=== PATIENT | female | born 2000 | race Caucasian/White ===

== ENCOUNTER → 2023-05-21 10:39 | Outpatient (CLI) | payer OTHER, SELFPAY ==
[2023-05-21 16:01] LABS: Urine N gonorrhoeae NOT DETECTED
[2023-05-21 16:04] LABS: Urine Chlamydia NOT DETECTED
== END ==
PROVIDERS: Visit Provider Obstetrics & Gynecology
DX: Z34.01 Encounter for supervision of normal first pregnancy, first trimester (principal); Z3A.11 11 weeks gestation of pregnancy
CPT/HCPCS: 87491; 87591

== ENCOUNTER → 2023-05-21 11:01 | Outpatient (CLI) | payer OTHER, SELFPAY ==
[2023-05-21 11:58] LABS: Add Manual Diff / Slide Review NO; Basophils Absolute Auto 0 /uL (0-100); Basophils Percent Auto 0.7 % (0-2); Eosinophils Absolute Auto 100 /uL (0-450); Eosinophils Percent Auto 0.8 % (2-4); Hematocrit 37.9 % (36-46); Hemoglobin 13.3 g/dL (12.0-16.0); Lymphocytes Absolute Auto 2100 /uL (1100-4500); Mean Corpuscular HGB Conc 35.1 % (30-36); Mean Corpuscular Hemoglobin 32.2 PG (26-34); Mean Corpuscular Volume 91.8 fL (80-100); Monocytes Absolute Auto 600 /uL (0-900); Monocytes Percent Auto 8.4 % (3-14); Neutrophils Absolute Auto 4500 /uL (1500-7000); Neutrophils Percent Auto 61.1 % (50-75); Platelet Count 289 X10^3/uL (150-400); Red Blood Cell Count 4.13 X10^6/uL (4.0-5.2); Red Cell Distribution Width 12.9 % (11.6-14.8); White Blood Cell Count 7.4 X10^3/uL (4.5-11.0)
[2023-05-22 11:36] LABS: Varicella IgG Antibody 210 index (Immune >165)
[2023-05-23 04:39] LABS: RPR Screen Non Reactive (Non Reactive)
[2023-05-24 16:25] LABS: Hepatitis B Surface Antigen NEGATIVE s/c (NEGATIVE)
[2023-05-24 17:04] LABS: Rubella Antibody IgG 66.1 IU/mL (>15)
[2023-05-24 17:23] LABS: HIV 1 & 2 Ab/Ag 4th Gen Combo NEGATIVE (NEGATIVE); Hep C Virus Ab w/Reflex Quant NEGATIVE s/c (NEGATIVE)
== END ==
PROVIDERS: Referring Provider Family Medicine; Visit Provider Family Medicine
DX: Z34.01 Encounter for supervision of normal first pregnancy, first trimester (principal); Z3A.11 11 weeks gestation of pregnancy
CPT/HCPCS: 36415; 80055; 86787; 86803; 86850; 86900; 86901; 87389; 87491; 87591

== ENCOUNTER → 2023-06-18 09:32 | Outpatient (CLI) | payer OTHER, SELFPAY ==
[2023-06-21 16:36] LABS: AFP, Serum 24.2 ng/mL (.); Estriol, Free 0.42 ng/mL (.); Inhibin A, Dimeric 137.06 pg/mL (.); Inhibin A, MoM 0.95 (.); Maternal Ethnicity Caucasian (.); Maternal Weight 183 lbs (.); Number of Fetuses No (.); OSBR Risk 1 IN 10000 (.); Results Report (.); Test Results *Screen Negative* (.); hCG, Serum 79153 mIU/mL (.)
== END ==
PROVIDERS: PCP Family Medicine; Referring Provider Family Medicine; Visit Provider Family Medicine
DX: Z34.00 Encounter for supervision of normal first pregnancy, unspecified trimester (principal); Z3A.15 15 weeks gestation of pregnancy
CPT/HCPCS: 36415; 82105; 82677; 84702; 86336

== ENCOUNTER 2023-08-27 09:48 | Outpatient (CLI) | payer OTHER, SELFPAY | END 2023-08-27 11:00 | disposition home or self-care (01) | LOC: LABOR 09:52 → OB 08-30 11:56 | PROVIDERS: PCP Family Medicine; Referring Provider Family Medicine; Visit Provider Family Medicine | DX: Z36.9 Encounter for antenatal screening, unspecified (principal) | CPT/HCPCS: 59025; G0378; G0379 ==

== ENCOUNTER → 2023-09-03 08:19 | Outpatient (CLI) | payer OTHER, SELFPAY ==
[2023-09-03 10:05] LABS: GTT (PREG) 1 Hour PP 50gm Dose 100 mg/dL (76-139)
== END ==
PROVIDERS: Family Medicine; PCP Family Medicine; Referring Provider Family Medicine; Visit Provider Family Medicine
DX: Z36.89 Encounter for other specified antenatal screening (principal); Z34.00 Encounter for supervision of normal first pregnancy, unspecified trimester
CPT/HCPCS: 82950; 86850

== ENCOUNTER → 2023-09-27 10:18 | Outpatient (CLI) | payer OTHER, SELFPAY ==
[2023-09-27 11:07] LABS: Appearance Urine UA SL CLOUDY; Bilirubin Urine UA NEGATIVE (NEGATIVE); Color Urine UA YELLOW; Glucose Urine UA NEGATIVE (Negative); Ketones Urine UA NEGATIVE (NEGATIVE); Leukocyte Esterase Urine UA 1+ (NEGATIVE); Nitrite Urine UA NEGATIVE (Negative); Occult Blood Urine UA NEGATIVE (Negative); Protein Urine UA NEGATIVE (Negative); Specific Gravity Urine UA <=1.005 (1.000-1.035); Urobilinogen Urine UA 0.2 E.U./dL (0.2)
[2023-09-27 12:03] LABS: Bacteria Urine Moderate (10-30); Culture Indicated Urine Specimen Cultured; RBC Urine 0-1/HPF (0-5/HPF); Squamous Epithelial Cell Urine 5-10 /HPF (0-5/HPF); WBC Urine 1-5/HPF (0-5/HPF)
== END ==
LOC: LAB 10:19
PROVIDERS: PCP Family Medicine; Referring Provider Family Medicine; Visit Provider Family Medicine
DX: R30.0 Dysuria (principal)
CPT/HCPCS: 81003; 81015; 87086

== ENCOUNTER → 2023-10-08 09:55 | Outpatient (CLI) | payer OTHER, SELFPAY ==
[2023-10-08 10:31] LABS: Add Manual Diff / Slide Review NO; Basophils Absolute Auto 100 /uL (0-100); Basophils Percent Auto 0.5 % (0-2); Eosinophils Absolute Auto 100 /uL (0-450); Eosinophils Percent Auto 1.1 % (2-4); Lymphocytes Absolute Auto 2400 /uL (1100-4500); Lymphocytes Percent Auto 21.8 % (25-40); Mean Corpuscular HGB Conc 35.5 % (30-36); Mean Corpuscular Hemoglobin 32.8 PG (26-34); Mean Corpuscular Volume 92.3 fL (80-100); Monocytes Absolute Auto 1000 /uL (0-900); Monocytes Percent Auto 9.3 % (3-14); Neutrophils Absolute Auto 7300 /uL (1500-7000); Neutrophils Percent Auto 67.3 % (50-75); Platelet Count 288 X10^3/uL (150-400); Red Blood Cell Count 3.36 X10^6/uL (4.0-5.2); Red Cell Distribution Width 12.6 % (11.6-14.8); White Blood Cell Count 10.9 X10^3/uL (4.5-11.0)
== END ==
PROVIDERS: PCP Family Medicine; Referring Provider Family Medicine; Visit Provider Family Medicine
DX: Z34.00 Encounter for supervision of normal first pregnancy, unspecified trimester (principal)
CPT/HCPCS: 36415; 85025

== ENCOUNTER → 2023-11-12 10:16 | Outpatient (CLI) | payer OTHER, SELFPAY ==
[2023-11-13 08:12] LABS: Strep Grp B PCR NEG for Grp B Strep
== END ==
PROVIDERS: PCP Family Medicine; Visit Provider Family Medicine
DX: Z34.00 Encounter for supervision of normal first pregnancy, unspecified trimester (principal)
CPT/HCPCS: 87653

== ENCOUNTER 2023-12-06 19:18 | Inpatient (IN) | payer OTHER, SELFPAY ==
[2023-12-06 21:53] LABS: Add Manual Diff / Slide Review NO; Basophils Absolute Auto 100 /uL (0-100); Basophils Percent Auto 0.6 % (0-2); Eosinophils Absolute Auto 100 /uL (0-450); Eosinophils Percent Auto 0.7 % (2-4); Hematocrit 36.6 % (36-46); Hemoglobin 12.5 g/dL (12.0-16.0); Lymphocytes Absolute Auto 2900 /uL (1100-4500); Lymphocytes Percent Auto 21.8 % (25-40); Mean Corpuscular HGB Conc 34.1 % (30-36); Mean Corpuscular Hemoglobin 31.5 PG (26-34); Mean Corpuscular Volume 92.3 fL (80-100); Monocytes Absolute Auto 1100 /uL (0-900); Neutrophils Absolute Auto 9200 /uL (1500-7000); Neutrophils Percent Auto 68.9 % (50-75); Platelet Count 307 X10^3/uL (150-400); Red Blood Cell Count 3.96 X10^6/uL (4.0-5.2); Red Cell Distribution Width 13.6 % (11.6-14.8); White Blood Cell Count 13.3 X10^3/uL (4.5-11.0)
--- NOTE | 2023-12-06 22:41 | P.HPOB_ITS ---
OB HPI Date/Time Date of admission: 12/06/23 History of Present Condition Chief complaint: labor NEEL Calculator 2 Estimated Delivery Date Method Current WG Current Estimate 12/08/23 LMP (Certain) 39w 5d Other Estimates 12/15/23 Ultrasound #1 38w 5d 12/12/23 Ultrasound #2 39w 1d 12/07/23 Conception 39w 6d Estimated Gestational Age (weeks): 39 : 1 Para: 0 Narrative: 23-year-old at GA 39+5 weeks presenting for leakage of fluid with contractions. Reports onset of clear fluid leaking since sometime last night. Initially thought she may have leaked urine. Persistent contractions today every 3-5min for two hours prior to presentation. Endorses normal movement. Denies vaginal bleeding. complicated by anemia (on oral iron supplement), Rh negative blood type, remote h/o possible seizure (not on anti-epileptic). care: good care Dating criteria OB: LMP confirmed by 1st trimester US Ultrasounds: normal 1st trimester US and normal mid trimester US Preadmission Labs Last OB Lab Results: 2 Blood Type A Negative 12/06/23 21:35 Antibody Screen Negative 12/06/23 21:35 Hematocrit 36.6 % (36-46) 12/06/23 21:35 Hemoglobin 12.5 g/dL (12.0-16.0) 12/06/23 21:35 Hepatitis B Surface Antigen Negative s/c (NEGATIVE) 05/21/23 11 :21 Hepatitis C Antibody Negative s/c (NEGATIVE) 05/21/23 11:21 Rubella Antibody 66.1 IU/mL (>15) 05/21/23 11:21 Varicella-Zoster IgG Antibody 210 index (Immune >165) 05/21/23 11:21 Glucose 1 Hour 100 mg/dL (76-139) 09/03/23 08:21 Group B Streptococcus (PCR) Neg for grp b strep 11/12/23 10:16 -: Chlamydia screen: negative and Gonorrhea screen: negative Genetic Screens: Quad screen: Normal Evaluation Evaluation Baseline heart rate: 150 Variability: Moderate (11-25) monitor accelerations: Present Monitor Decelerations: Absent Contraction Frequency (minutes): 4 Uterine Contraction Intensity: Mild Category of Tracing: Reactive Status: Category l Dilation (cm): 1 Effacement (%): 60 station: -4 Non-invasive Membranes Rupture Test: positive Comments: Exam per L&D RN [facility] Medical History (Updated 10/08/23 @ 22:46 by Ángel Contreras MD) Migraine with aura Migraine without aura Seizure (~09/2022) Surgical History (Updated 05/06/23 @ 09:42 by Tanisha Braswell RN) No pertinent past surgical history Social History marital status: unmarried,single number of children: 0 household members: other lives independently: Yes caregiver/support person: No housing: other ([employer]) pets and animals: No education level: high school 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) special audie needs: No travel history: recent ([place], [place], [place], domestic) seatbelt use: always helmet use: Yes water heater temp set < 120 deg: Yes working smoke detector in home: Yes fire extinguisher in home: Yes carbon monox detector in home: Yes firearms in home: No do you feel safe at home: Yes Smoking Status: Former smoker (Quit when she learned she was ) Tobacco: How many years used: 6 second hand exposure: No alcohol intake: former (1-3w/ not ) substance use type: does not use during the past year weight has: other (~25 lb fluctuation) well-balanced diet: daily or most days daily servings fruits/ve-4 caffeine: No Type(s) of exercise: walking Meds Home Medications and Allergies Home Medications Medication Instructions Recorded Confirmed Type cholecalciferol (vitamin D3) 50 50 mcg PO DAILY 05/06/23 12/03/23 History mcg (2,000 unit) capsule heavenly (Zingiber officinalis) 500 1 g PO TID PRN 05/06/23 12/03/23 History mg capsule mecobalamin (vitamin B12) 1,000 1,000 mcg PO DAILY 05/06/23 12/03/23 History mcg chewable tablet vitamin-ferrous sulfate tab PO 05/06/23 12/03/23 History 27 mg iron-folic acid 0.8 mg tablet pyridoxine (vitamin B6) 50 mg 25 mg PO DAILY 05/06/23 12/03/23 History tablet ferrous sulfate 325 mg (65 mg 325 mg PO Q OTHER DAY #30 tabs 10/08/23 12/03/23 Rx iron) tablet Allergies Allergy/AdvReac Type Severity Reaction Status Date / Time No Known Drug Allergies Allergy Verified 12/03/23 11:20 Review of Systems Review of Systems ROS: Yes All systems reviewed with the patient and are negative except as otherwise documented OB Exam Narrative Exam Narrative: General: Well-nourished, no distress HEENT: NC/AT, EOMI, moist mucous membranes CV: RRR, normal S1 S2, no m/g/r Resp: CTAB Abd: Gravid, soft, NTND, +BS Ext: Full ROM, no edema Skin: No rash or lesions Neuro: A&O x3, normal tone, no focal deficits Objective Labs 12/06/23 21:35 Labs: Laboratory Results - last 24 hr 12/06/23 21:35 WBC 13.3 H RBC 3.96 L Hgb 12.5 Hct 36.6 MCV 92.3 MCH 31.5 MCHC 34.1 RDW 13.6 Plt Count 307 Neut % (Auto) 68.9 Lymph % (Auto) 21.8 L Stanton % (Auto) 8.0 Eos % (Auto) 0.7 L Baso % (Auto) 0.6 Neut # (Auto) 9200 H Lymph # (Auto) 2900 Stanton # (Auto) 1100 H Eos # (Auto) 100 Baso # (Auto) 100 Blood Type A Negative Antibody Screen Negative Assessment and Plan Assessment and Plan Assessment and Plan narrative: 23-year-old at [place] 39+5 weeks presenting for leakage of fluid w/contractions. Amnisure positive, pt in labor. Possible prolonged ROM given reported leakage of fluid since last night, pt afebrile and FWB reassuring w/cat 1 strip on presentaiton. -admit to L&D -cervical ripening with p.o. misoprostol q4h, transition to pitocin when Carmona favorable -GBS negative, ppx not indicated -pain control prn if desired by patient -PPH risk low -VTE risk low, SCDs with epidural -anticipate vaginal delivery Time Spent with Patient Total time spent with greater than 50% in coordination of care (as documented) at patient's floor/unit and/or counseling patient:: 15-24 minutes
[2023-12-06] MEDS: fentaNYL 100 MCG/2 ML INJ 50 MCG IV (22:44)
[2023-12-06 22:50] VITALS: BP 123/83
[2023-12-06] MEDS: LACTATED RINGERS 1,000 ML 100 ML IV (23:24)
[2023-12-07] MEDS: fentaNYL 100 MCG/2 ML INJ 50 MCG IV ×5 (01:01→08:16)
[2023-12-07] MEDS: miSOPROStoL 25 MCG TABLET PO ×2 (05:26)
[2023-12-07] MEDS: OXYTOCIN PREMIX 30 UNIT/500 ML PLAST..BAG IV (13:30)
[2023-12-07] MEDS: LACTATED RINGERS 1,000 ML 100 ML IV (13:31)
--- NOTE | 2023-12-07 13:49 | P.PCN_ITS ---
[facility]ional [facility] Pre-procedure PMH/ROS narrative: at GA 39+5 with leakage of fluid and contractions. complicated by anemia (on oral iron supplement), remote h/o possible seizure (not on anti- epileptic). PSH/Anesthesia history narrative: No prior surgery and no know FHx of anesthetic complications. ASA Class: II Labs: Hct 36.6 % (36-46) 12/06/23 21:35 Plt Count 307 X10^3/uL (150-400) 12/06/23 21:35 Medications: Current Medications Generic Name Dose Route Start Last Admin Trade Name Freq PRN Reason Stop Dose Admin Calcium Carbonate 1,000 mg 12/06/23 21:08 Calcium Carbonate 500 Mg Tab PO Q4HR PRN Dyspepsia Carboprost Tromethamine 250 mcg 12/06/23 21:08 Carboprost 250 Mcg/Ml Ampul IM Q90M PRN Bleeding Diphenhydramine HCl 25 mg 12/07/23 10:48 Diphenhydramine 50 Mg/Ml Vial IV Q10M PRN Pruritis Fentanyl 50 mcg 12/06/23 21:08 12/07/23 08:16 Fentanyl 100 Mcg/2 Ml Inj IV 50 mcg Q1H PRN Administration Pain, Moderate (4-6) Lactated Ringer's 1,000 mls @ 100 mls/hr 12/06/23 21:15 12/07/23 13:31 Lactated Ringers IV 100 mls/hr CONT ELSIE Administration Oxytocin/Lactated Ringer's 30 unit in 500 mls @ 200 mls/hr 12/06/23 21:08 Oxytocin Premix IV CONT PRN Bleeding Protocol Tranexamic Acid 1,000 mg/ 100 mls @ 200 mls/hr 12/06/23 21:08 Sodium Chloride IV NOW PRN Bleeding FENT 2MCG/ML BUPIV 0.125% EPI 200 mcg in 100 mls @ 6 mls/hr 12/07/23 11:00 Fentanyl/Bupiv/Ns 2mcg/Ml - 0.125% EPIDURAL CONT ELSIE Oxytocin/Lactated Ringer's 30 unit in 500 mls @ 1 mls/hr 12/07/23 13:30 12/07/23 13:30 Oxytocin Premix IV 1 milliunit/min TITRATE ELSIE 1 mls/hr Administration Protocol 1 MILLIUNIT/MIN Lidocaine HCl 20 ml 12/06/23 21:08 Lidocaine 1% 20 Ml INJ INTRA-OP PRN Post Delivery Methylergonovine Maleate 0.2 mg 12/06/23 21:08 Methylergonovine 0.2 Mg Tablet PO Q6HR PRN Heavy Bleeding Methylergonovine Maleate 0.2 mg 12/06/23 21:08 Methylergonovine 0.2 Mg/Ml Vial IM NOW PRN Bleeding Misoprostol 800 mcg 12/06/23 21:08 Misoprostol 200 Mcg Tablet GA NOW PRN Bleeding Misoprostol 400 mcg 12/06/23 21:08 Misoprostol 200 Mcg Tablet SL NOW PRN Bleeding Misoprostol 25 mcg 12/06/23 21:15 12/07/23 05:26 Misoprostol 25 Mcg Tablet PO 25 mcg Q4H ELSIE Administration Nalbuphine HCl 2.5 mg 12/07/23 10:48 Nalbuphine 20 Mg/Ml Ampul IV Q10M PRN Pruritis Naloxone HCl 0.2 mg 12/06/23 21:08 Naloxone 0.4 Mg/Ml Vial IV Q2MIN PRN Opiate Reversal Ondansetron HCl 4 mg 12/06/23 21:08 Ondansetron 4 Mg/2 Ml Inj IV Q4HR PRN Nausea And Vomiting Oxytocin 10 unit 12/06/23 21:08 Oxytocin 10 Unit/Ml Vial IM NOW PRN Bleeding Allergies: Allergies Allergy/AdvReac Type Severity Reaction Status Date / Time No Known Drug Allergies Allergy Verified 12/03/23 11:20 Procedure Insertion date: 12/07/23 Insertion time: 11:21 Prep/Local: betadine x3 and 1% lidocaine Interspace: L3-4 Patient position: sitting Needle: 18 gauge [employer]tead (CSE: 27g Pencan through Hustead, clear CSF, 1mL 0.25% MPF bupiv) Loss of resistance with: saline MILI at (cm): 8 Catheter placed at SKIN (cm): 14 Catheter in SPACE (cm): 6 Insertion: No CSF, No Blood, No Paresthesia with insertion, No Paresthesia with injection and No Test dose reaction Initial Medications TEST DOSE time: 11:22 TEST DOSE: 1.5% lidocaine with epinephrine 1:200k (mL): 3 BOLUS DOSE time: 11:30 BOLUS DOSE (mL): 4 BOLUS DOSE med: other (infusate) Infusion INFUSION: 0.125% bupivacaine and with fentanyl 2 mcg/mL Initial rate (mL/hr): 10 Subsequent interventions: PCEA@10+4 Post-procedure Anesthesia date START: 12/07/23 Anesthesia time START: 11:15 Anesthesia date END: 12/07/23 Anesthesia time END: 15:23 Post-procedure Anesthesia Assessment: Yes CV function: HR/BP stable, Yes Resp function: RR/sat/airway adequate, Yes Post-op hydration adequate, Yes Pain control adequate, Yes Nausea & vomiting absent, Yes Temperature > 36 C, Yes Mental status appropriate and No Anesthesia complications
[2023-12-07] MEDS: ONDANSETRON 4 MG/2 ML INJ IV (14:17)
--- NOTE | 2023-12-07 18:21 | PM.OBPRVD ---
Labor & Delivery Delivery date: 12/07/23 Intrapartal Events: None Cervical ripening method: per misoprostal protocol Delivery augmentation: rupture of membranes and pitocin Delivery monitor: external FHT and external uterine Route of delivery: L&D Laceration Description: Perineal - 2nd Degree and Vaginal - 1st Degree (bilateral) Delivery repair: vicryl (3-0) Estimated blood loss (mL): 200 Anesthesia Type: Epidural Narrative: Patient with spontaneous rupture of membranes on 12/05/2023 at 10:30 p.m. Presented to labor and delivery for evaluation on 12/06/2023 at 8:10 p.m. and rupture of membranes confirmed with AmniSure. Patient admitted for cervical ripening with p.o. misoprostol overnight then transitioned to Pitocin on 12/07/2023 at 10:00 a.m. Forebag ruptured using Amnihook at 1:00 p.m. Patient progressed to become fully dilated at 2:53 p.m. and began pushing at 2:53 p.m. Spontaneous vaginal delivery of a viable female in the FARA position occurred at 3:13 p.m. The was suctioned and stimulated at the perineum, and gave appropriate cry with movement of all extremities. Delayed cord clamping was observed for 60 seconds. The cord was clamped and cut, and the handed to mother for skin to skin. Cord blood and segment were obtained. The placenta was delivered without difficulty using gentle cord traction and found to be intact with a 3-vessel cord. After fundal massage the uterus was firm and bleeding stopped. The vagina and cervix were examined for lacerations. A second-degree perineal and bilateral first-degree vaginal lacerations were noted and repaired with 3-0 Vicryl suture in the usual fashion. Patient stable with rooming in, bonding skin to skin and attempting to breastfeed. Baby 1: Infant gender: Female Presentation: vertex Position: Left Occiput Anterior Placenta delivery description: Spontaneous Cord Vessel Description: 3 Vessels score (1 min): 8 score (5 min): 9 weight: 7 lb 2.676 oz Plan for aftercare: Routine care
[2023-12-07] MEDS: IBUPROFEN 600 MG TABLET PO (18:43)
[2023-12-07] MEDS: ACETAMINOPHEN 325 MG TABLET 650 MG PO (18:43)
[2023-12-07] MEDS: DERMOPLAST SPRAY 20% 60 ML 1 SPRAY TOP (18:43)
[2023-12-07] MEDS: LANOLIN OINT 7 GM 1 APPLIC TOP (18:57)
[2023-12-08] MEDS: ACETAMINOPHEN 325 MG TABLET 650 MG PO ×3 (00:15→12:18)
[2023-12-08] MEDS: IBUPROFEN 600 MG TABLET PO ×3 (00:15→12:18)
[2023-12-08] MEDS: DOCUSATE 100 MG CAPSULE PO (08:34)
--- NOTE | 2023-12-08 13:48 | P.DS_ITS ---
Discharge Providers Provider Date of admission: 12/06/23 19:18 Discharge Date: 12/08/23 Primary care physician: Ángel Contreras MD Consults: 12/06/23 21:08 Consult to Anesthesiology Urgent Comment: Consulting Provider: Anesthesiologist Reason for consultation: Epidural 12/08/23 18:18 Consult to Suspect Artist Supervisor Routine Comment: Discharge provider: Ángel Contreras MD Summary Hospital Course Date Patient Seen: 12/08/23 Time Patient Seen: 13:15 Diagnoses: SROM Spontaneous vaginal delivery Hospital Course: Patient with spontaneous rupture of membranes on 12/05/2023 at 10:30 p.m. Presented to labor and delivery for evaluation on 12/06/2023 at 8:10 p.m. and rupture of membranes confirmed with AmniSure. Patient admitted for cervical ripening with p.o. misoprostol overnight then transitioned to Pitocin on 12/07/2023 at 10:00 a.m. Forebag ruptured using Amnihook at 1:00 p.m. Patient progressed to become fully dilated at 2:53 p.m. and began pushing at 2:53 p.m. Spontaneous vaginal delivery of a viable female infant in the FARA position occurred at 3:13 p.m. She did have a second-degree perineal and bilateral first- degree vaginal lacerations that were repaired. Her course was uncomplicated. At discharge patient is ambulating well, tolerating normal diet, breast-feeding without difficulty, and pain is adequately controlled. She reports bleeding is similar to normal menses. Peripartum Data Infant Delivery Method: Natural Vaginal Laceration Description: Perineal - 2nd Degree and Vaginal - 1st Degree (bilateral) complications: none 1: Gender: Female Disposition of : home Discharge Diagnosis (1) (spontaneous vaginal delivery): Status: Acute Status at Discharge Functional status at discharge: independent ambulation Overall status at discharge: patient is back to baseline Time Spent with Patient Time attestation: Total time spent providing and/or coordinating discharge services: Time spent: Less than 30 minutes Objective Labs 12/06/23 21:35 Exam Narrative Exam Narrative: HEENT: Moist mucous membranes, no pallor CV: Regular rate and rhythm, no murmur auscultated Resp: CTAB, comfortable work of breathing Abdomen: Soft, bowel sounds present, fundus firm below umbilicus with appropriate tenderness Extremities: No edema, well-perfused, no calf tenderness or evidence of DVT Discharge Plan Discharge Plan Patient Disposition: Home Discharge orders & Medications Prescriptions: New Dermoplast (with menthol) 20-0.5 % Aerosol 1 spray topical Q1HR PRN (Reason: perineal pain) Qty: 78 1RF docusate sodium 100 mg Capsule 100 mg PO DAILY Qty: 30 1RF ibuprofen 600 mg Tablet 600 mg PO Q6HR PRN (Reason: Pain, Mild (1-3)) Qty: 60 1RF Continued ferrous sulfate 325 mg (65 mg iron) tablet 325 mg PO Q OTHER DAY Qty: 30 2RF vit-ferrous sulfat-FA 27 mg iron- 0.8 mg tablet PO pyridoxine (vitamin B6) 50 mg tablet 25 mg PO DAILY mecobalamin (vitamin B12) 1,000 mcg tablet,chewable 1,000 mcg PO DAILY heavenly (Zingiber officinalis) 500 mg capsule 1 g PO TID PRN cholecalciferol (vitamin D3) 50 mcg (2,000 unit) capsule 50 mcg PO DAILY Follow up/Referrals: Ángel Contreras MD [Primary Care Provider] - 01/18/24 11:30 am Visit Report/Discharge Packet Stand Alone Forms: Discharge: Care, Patient Portal/API, Stroke Signs & Symptoms Discharge Data Primary Care Provider: Ángel Contreras Discharges patient from system. Discharge Date/Time: 12/08/23 15:22
[2023-12-08] MEDS: RHO(D) IMMUNE GLOBULIN 1,500 UNIT SYRINGE 1500 UNIT IM (15:02)
== END 2023-12-08 15:22 | disposition home or self-care (01) | DRG 807 ==
PROVIDERS: Admitting Provider Family Medicine; PCP Family Medicine; Referring Provider Family Medicine; Visit Provider Family Medicine
DX: O42.02 Full-term premature rupture of membranes, onset of labor within 24 hours of rupture (principal); Z37.0 Single live birth; O70.1 Second degree perineal laceration during delivery; O70.0 First degree perineal laceration during delivery; Z3A.39 39 weeks gestation of pregnancy
CPT/HCPCS: 36415; 59050; 59200; 59400; 84112; 85025; 85461; 86850; 86900; 86901; G0379; J2405; J2590; J2790; J3010